=== PATIENT | female | born 1995 | race African-American/Black ===

== ENCOUNTER 2017-10-30 20:31 | Day surgery (SDC) | payer OTHER ==
[2017-10-30 21:01] VITALS: BMI 25.8
--- NOTE | 2017-10-30 21:37 | PDOC.LDHP ---
Labor and Delivery H&P Chief complaint: abdominal pain HPI: 22 yo @ 27.2 by lmp and 2nd tri US presents for cc of abdominal pain, nasuea and vomiting over last 24 hours. Pt reports abdominal pain since this am that was resolved with tylenol. Her is in the ER being treated for similar symptoms. She denies fever,chills, sweats, cp, sob. Reports good movement. She describes discomfort as a feeling she needs to have a bm. Denies diarrhea, constipation. Current gestational age (weeks): 27 (+2) Due date: 01/27/18 Dating criteria: last menstrual period, second trimester ultrasound Grav: 2 Para: 1 Current complications: none Abnormal US findings: No Current medications: pre- vitamins Previous surgical history: none Social history: none - Physical Exam Vital signs reviewed and normal: yes General: NAD, resting Heart: RRR Lungs: CTAB Abdomen: NTTP Extremeties: no edema FHT: category 1 - OB Labs Blood type: A RH: positive Antibody Screen: negative HIV: negative RPR: negative HEPSAg: negative 1 hour GCT: unknown GBS: unknown Urine drug screen: not done Rubella: immune - Assessment 1) Gastroenteritis, likely viral: Given pts symptoms and close contacts with similar symptoms will treat for presumed viral gastroenteritis. SL zofran for nausea and 1L bolus LR. Will check UA to r/o UTI/pyelo although clinical suspicion is low given afebrile and no cva tenderness. FHT look excellent with good variability and baseline FHR approx 140s. She reports good movement and denies LOF, vaginal bleeding/pain or pressure. - Plan Plan: observation in L&D, other -: Given pts symptoms and close contacts with similar symptoms will treat for presumed viral gastroenteritis. SL zofran for nausea and 1L bolus LR. Will check UA to r/o UTI/pyelo although clinical suspicion is low given afebrile and no cva tenderness. FHT look excellent with good variability and baseline FHR approx 140s. She reports good movement and denies LOF, vaginal bleeding/ pain or pressure. Likely D/C to home with sl zofran, but will reassess after IVF and sl zofran. <Mike Baez - Last Filed: 10/30/17 21:56> <Mansi Mata - Last Filed: 10/31/17 00:42> Allergies/Adverse Reactions: Allergies Allergy/AdvReac Type Severity Reaction Status Date / Time No Known Allergies Allergy Verified 10/30/17 20:55 Attending Addendum - Attending Addendum Date/Time: 10/31/17 0035 I personally evaluated the patient and discussed the management with Dr. Baez I agree with the History, Examination, Assessment and Plan documented above with any addition or exceptions noted below- 22 yo @27.2 weeks presented c/o N/V for the last 24 hours. Spouse has similar symptoms. Has not been able to tolerate food or liquids. Denies any diarrhea. Has had some associated epigastric pain. Denies any fever/chills. (+) FM. A/P: Probable Gastroenteritis- given IVF and offered zofran which she declines. [place] much improved after fluids and was able to tolerate some liquids. Plan to D/c home. Has follow-up scheduled for 10/31/17. <Mansi Mata - Last Filed: 10/31/17 00:42>
[2017-10-30] MEDS ORDERED: Ondansetron ODT 8 MG TAB SL PRN (21:48)
[2017-10-30] MEDS ORDERED: Lactated Ringer's 1,000 ML IV SCH (22:00)
[2017-10-30 22:29] LABS: Bilirubin Negative (Negative); Blood, Urine Negative (Negative); Clarity CLEAR (Clear); Glucose, Urine (Dipstick) Negative (Negative); Leukocyte Small (Negative); Nitrite Negative (Negative); Protein, Urine (Dipstick) 30 mg/dL (Neg-Trace); pH, Urine 6.5 (5.0-9.0)
[2017-10-30 22:31] LABS: Bacteria/HPF None Seen HPF (None Seen); Hyaline Casts/LPF 7-10 HYALINE CAST LPF (0-3 Hyaline); Pathc Cast-AUWi Flag 0.87 (0-2.49); RBC/HPF 0-3 HPF (0-3)
== END 2017-10-30 23:32 | disposition home or self-care (01) ==
LOC: L&D/OP 20:31
PROVIDERS: ATTEND Family Medicine
DX: O99.89 Other specified diseases and conditions complicating pregnancy, childbirth and the puerperium (principal); R10.13 Epigastric pain; R11.2 Nausea with vomiting, unspecified; Z3A.27 27 weeks gestation of pregnancy
CPT/HCPCS: 81003; 81015; 96360; 96361; 99282

== ENCOUNTER 2018-01-20 22:04 | Inpatient (IN) | payer OTHER ==
[2018-01-20 22:55] VITALS: BMI 28.5
--- NOTE | 2018-01-21 00:14 | PDOC.FPROB ---
FMR OB H&P: HPI - History of Present Illness Chief Complaint: contractions FMR OB H&P: Medications - Current Home Medications: Medication Instructions Recorded Confirmed Type Vits96/Iron Fum/Folic 1 tablet PO DAILY 12/29/15 01/20/18 History [ Tablet] Ferrous Sulfate [Feosol] 325 mg PO BID-WM #0 tab 05/02/16 01/20/18 Rx Acetaminophen [Tylenol Extra 1,000 mg PO PRN PRN 10/30/17 01/20/18 History Strength] Ondansetron [Zofran ODT] 4 mg SL Q8H PRN #30 tab 10/30/17 01/20/18 Rx Allergies/Adverse Reactions: Allergies Allergy/AdvReac Type Severity Reaction Status Date / Time No Known Allergies Allergy Verified 10/30/17 20:55 FMR OB H&P: Vital Signs - Maternal Vital signs: Vital Signs - First Documented Temp Pulse Resp BP 99.3 F 80 18 134/86 01/20/18 22:32 01/20/18 22:32 01/20/18 22:32 01/20/18 22:32 FMR OB H&P: A/P Discussion: Date/Time: 01/21/18 0014 This H&P was discussed with [] and [] who agree with the above documentation and plan.
[2018-01-21] MEDS ORDERED: Acetaminophen 500 MG TAB ONE (03:33)
[2018-01-21] MEDS ORDERED: Promethazine HCl 25 MG/ML VIAL IM PRN ×2 (04:42→06:17)
[2018-01-21] MEDS ORDERED: Acetaminophen 500 MG TAB PO PRN (04:42)
[2018-01-21] MEDS ORDERED: Ondansetron HCl/PF 4 MG/2 ML Vial IVP PRN ×2 (04:42→06:17)
[2018-01-21] MEDS ORDERED: Butorphanol Tartrate 1 MG/ML VIAL SLOW IVP PRN (04:42)
[2018-01-21] MEDS: Lactated Ringer's 1,000 ML IV SCH ×3 (04:43→23:37)
[2018-01-21] MEDS ORDERED: Penicillin G Potassium 5 MILL.UNITS in Sodium Chloride 0.9% 100 ML IVPB SCH (04:45)
[2018-01-21] MEDS ORDERED: NS / Oxytocin 40 units/1000ml 1,000 ML IV SCH (04:45)
[2018-01-21] MEDS ORDERED: NS w/ Oxytocin 10 units 500 ML IV SCH ×2 (04:45)
[2018-01-21] MEDS ORDERED: Lidocaine 1% (PF) 30 ML VIAL SC PRN (04:45)
[2018-01-21] MEDS ORDERED: HYDROcodone/Acetaminophen 5/325 mg Tablet PO PRN (04:45)
[2018-01-21] MEDS ORDERED: Ibuprofen 800 MG TAB PO PRN (04:45)
[2018-01-21] MEDS ORDERED: Misoprostol 200 MCG TAB RC PRN (04:45)
[2018-01-21] MEDS: Penicillin G Potassium 2.5 MILL.UNITS in Sodium Chloride 0.9% 100 ML IVPB SCH ×4 (05:25→18:42)
[2018-01-21] MEDS ORDERED: Bupivacaine 0.5% 20 ML, fentaNYL Citrate/PF 400 MCG in Sodium Chloride 0.9% 72 ML EPIDURAL SCH (05:30)
[2018-01-21 05:43] LABS: Hemoglobin 11.1 g/dL (12.0-16.0); Mean Corpuscular HGB CONC 32.8 g/dL (32.0-36.0); Mean Corpuscular Hemoglobin 26.8 pg (25.0-35.0); Mean Corpuscular Volume 81.7 fL (78.0-98.0); Platelet Count 238 thou/uL (130-400); RBC Distribution Width 12.8 % (11.5-14.5); Red Blood Cell (RBC) Count 4.13 mill/uL (4.00-5.20); White Blood Cell (WBC) Count 8.1 thou/uL (4.8-10.8)
[2018-01-21 06:12] LABS: Syphilis Antibody Nonreactive (Nonreactive); Syphilis Antibody Index 0.06 S/CO (<1.00 Non-Reactive)
[2018-01-21 06:14] LABS: HBSAg Index 0.15 S/CO (0-0.99); HIV (1/2) Antibody/Antigen Non-Reactive (NonReactive); HIV 1/2 INDEX 0.09 S/CO (<1.00); Hep B Surf Ag Non-Reactive S/CO (NonReactive)
[2018-01-21] MEDS ORDERED: Acetaminophen 325 MG TAB PO PRN (06:17)
[2018-01-21] MEDS ORDERED: diphenhydrAMINE 50 MG/ML VIAL IVP PRN (06:17)
[2018-01-21] MEDS ORDERED: Eucerin (Mineral Oil/Petrolatum,White) 30 gm Jar TOP PRN (06:17)
[2018-01-21] MEDS ORDERED: ePHEDrine/0.9% NaCl/PF SYRINGE 50 mg/10 ml SLOW IVP PRN (06:17)
[2018-01-21] MEDS ORDERED: Lactated Ringer's 500 ML IV PRN (06:17)
[2018-01-21] MEDS ORDERED: Naloxone HCl 0.4 mg/ml Vial IVP PRN ×2 (06:17)
[2018-01-21] MEDS ORDERED: fentaNYL Citrate/PF 400 MCG, Bupivacaine 0.5% 20 ML in Sodium Chloride 0.9% 72 ML EPIDURAL SCH (06:30)
[2018-01-21] MEDS ORDERED: Communication Order-Pharmacy FS SCH (06:30)
--- NOTE | 2018-01-21 08:13 | PDOC.OPDEL ---
OB Operative/Delivery Note Delivery Dr/Surgeon: Tal, attending Dr. Olivares Assist: Tam Ordonez Pre-Delivery Diagnosis: active labor Procedure/Post Delivery Dx: spontaneous vaginal delivery Weeks gestation: 39 (39w2d) Anesthesia: epidural - Additional Findings/Plan Placenta delivered: spontaneous Repaired Obstetrical Laceration: periurethral (small periurethral abrasions- hemostatic) Estimated blood loss: QBL- 539 Compilations/Other Findings: Delivering Physician: Rossy Parada DO, assist (Dr. Radha Turcios, Dr. Natividad Rodgers) Attending: Dr. Lady Olivares Procedure: Spontaneous Vaginal Delivery Anesthesia: epidural QBL: 539 ml Pre-op Diagnosis: 1. Term intrauterine in labor 2. GBS positive 3. Hx of cannabis use in 4. Hx of chlamydial cervicitis, unk TAWNYA Post-op Diagnosis: 1. Term intrauterine , delivered 2. GBS positive, inadequate prophylaxis 3. Hx of cannabis use in 4. Hx of chlamydial cervicitis, TAWNYA pending Indications: A 22 y/o female --> 2 presents in latent labor and quickly progressed to active labor. Delivery Note: This is 22yo F --> 2 @ 39.2wks who delivered a viable F at 0721. Following an uneventful antepartum course, a vigorous F was delivered over an intact perineum in the occipitoanterior position. Anterior Shoulder and then remainder of the body delivered. No nuchal cord. The head was held down and mouth and nares were bulb suctioned. Delayed cord clamping was performed. Cord clamped and cut and cord blood collected. Placenta delivered intact with a 3 vessel cord noted, did have some trailing membranes that were teased out. Fundal massage was performed and the fundus was firm. The cervix and vagina were inspected and found to have bilateral periurethral abrasions that were hemostatic. No other lacerations noted. Infant remained with patient for skin to skin contact with plans to go to nursery for routine care. Apgars were 9/9 at 1 & 5 minutes, respectively. Patient tolerated delivery well and will go to after routine recovery/care. Post delivery plan: routine recovery <Rossy Parada - Last Filed: 01/21/18 08:11> Attending Addendum - Attending Addendum Date/Time: 01/22/18 0226 I personally evaluated the patient and discussed the management with Dr. Parada. I agree with the History, Examination, Assessment and Plan documented above with any addition or exceptions noted below. I was present for and assisted in the uncomplicated of vigorous female . <Lady Olivares - Last Filed: 01/22/18 02:27>
[2018-01-21 08:28] LABS: Amphetamine Not Detected (NotDetected); Barbiturates Screen Detected (NotDetected); Benzodiazepine Screen Not Detected (NotDetected); Cocaine Metabolite Screen Not Detected (NotDetected); Medtox Control Line Valid? VALID (VALID); Medtox Reader # READER 4; Methadone Not Detected (NotDetected); Methamphetamine Not Detected (NotDetected); Opiate Screen Not Detected (NotDetected); Oxycodone Screen Not Detected (NotDetected); Phencyclidine (PCP) Not Detected (NotDetected); THC/Cannabinoid Screen Detected (NotDetected); Tricyclic Screen Not Detected (NotDetected)
[2018-01-21] MEDS ORDERED: Lidocaine 2% MPF 10 ML AMP (For Epidural Use) ONE (11:34)
[2018-01-21] MEDS: Ibuprofen 800 MG TAB PO SCH ×2 (16:34→21:50)
[2018-01-22] MEDS: Lactated Ringer's 1,000 ML IV SCH ×2 (05:55→18:57)
[2018-01-22] MEDS: Ibuprofen 800 MG TAB PO SCH ×3 (05:58→21:09)
--- NOTE | 2018-01-22 07:06 | PDOC.PP ---
Post Progress Note Post Day #: 1 Subjective: 22 yo -->2 delivered yesterday at 0721 a F infant via . She had small periurethral lacs that were not repaired. She is doing well this morning. She reports adequate pain control. Her roass has been d/c'd and she is voiding normally and ambulating. She is not . No acute complaints and no events overnight. Patient with positive drug screen yet again. She continues to deny use of cannabis use and any other recreational drugs. PO intake tolerated: yes Flatus: yes Ambulation: yes Vital Signs (12 hours) Temp Pulse Resp BP 01/22/18 00:45 97.4 F L 77 18 125/70 01/21/18 20:36 98.7 F 85 18 129/69 Weight Weight 80.286 kg - Physical Examination General: NAD Cardiovascular: no m/r/g Respiratory: clear to auscultation bilaterally, non-labored breathing Abdominal: + bowel sounds, lochia, no distention, appropriately TTP Fundus firm & at: -1 Extremities: negative homans (B) Neurological: no gross focal deficits Psychiatric: A&Ox3, normal affect Result Diagrams: 01/21/18 05:29 Additional Labs: Post Labs Blood Type A POSITIVE 01/21/18 05:29 Hep Bs Antigen Non-Reactive S/CO (NonReactive) 01/21/18 05:29 (1) (normal spontaneous vaginal delivery) Code(s): O80 - ENCOUNTER FOR FULL-TERM UNCOMPLICATED DELIVERY Status: Acute (2) Anemia during Code(s): O99.019 - ANEMIA COMPLICATING , UNSPECIFIED TRIMESTER Status : Acute (3) Group B streptococcal infection during Code(s): O98.819 - OTH MATERNAL INFEC/PARASTC DISEASES COMP PREG, UNSP TRI; B95.1 - STREPTOCOCCUS, GROUP B, CAUSING DISEASES CLASSD ELSWHR Status: Acute (4) History of marijuana use Code(s): Z87.898 - PERSONAL HISTORY OF OTHER SPECIFIED CONDITIONS Status: Suspected (5) Maternal chlamydia infection, history of, currently Code(s): O09.299 - SUPRVSN OF PREG W POOR REPRODCTV OR OBSTET HISTORY, UNSP TRI ; Z86.19 - PERSONAL HISTORY OF OTHER INFECTIOUS AND PARASITIC DISEASES; Z87.59 - PERSONAL HISTORY OF COMP OF PREG, CHLDBRTH AND THE PUERP Status: Resolved - Assessment/Plan 22yo -->2 delivered F infant at 0721 01/21. PPD #1. Maternal Chlamydial infection: - TAWNYA pending still, infant without s/sx UDS Positive: - Cannabinoids and barbituates - Patient denies use - CM consult GBS Positive with Inadequate Prophylaxis: - Will observe for 48h - No s/sx of infection Patient doing well, ambulating, toileting, pain well controlled. Lochia wnl. Plan to d/c home tomorrow pending CM recs. <Rossy Parada - Last Filed: 01/22/18 08:15> Vital Signs (12 hours) Temp Pulse Resp BP 01/22/18 11:58 98.5 F 81 20 146/76 H 01/22/18 08:00 98.2 F 70 20 150/85 H Weight Weight 80.286 kg Result Diagrams: 01/21/18 05:29 Additional Labs: Post Labs Blood Type A POSITIVE 01/21/18 05:29 Hep Bs Antigen Non-Reactive S/CO (NonReactive) 01/21/18 05:29 <Thi Castañeda - Last Filed: 01/22/18 14:11> Attending Addendum - Attending Addendum Date/Time: 01/22/18 1410 I personally evaluated the patient and discussed the management with Dr. Parada I agree with the History, Examination, Assessment and Plan documented above with any addition or exceptions noted below. ppd #1 s/p - recovering well. No concerns. Expect d/c tomorrow. <Thi Castañeda - Last Filed: 01/22/18 14:11>
[2018-01-22 22:42] LABS: Chlamydia by PCR Not Detected (NotDetected)
[2018-01-22 22:53] LABS: GC by PCR Not Detected (NotDetected)
[2018-01-23] MEDS: Lactated Ringer's 1,000 ML IV SCH ×2 (02:46→06:34)
--- NOTE | 2018-01-23 06:07 | PDOC.PP ---
Post Progress Note Post Day #: 2 Subjective: No events overnight. Patient states that her pain is well-controlled. Voiding and stooling normally. Bleeding is equivalent to normal menstrual bleeding but no clots have been seen. Patient is bottle feeding and says baby is feeding well. No concerns at this time. PO intake tolerated: yes Flatus: yes Ambulation: yes Vital Signs (12 hours) Temp Pulse Resp BP Pulse Ox 01/22/18 21:00 98.4 F 83 18 125/80 100 Weight Weight 80.286 kg - Physical Examination General: NAD Cardiovascular: no m/r/g, RRR Respiratory: clear to auscultation bilaterally, non-labored breathing Abdominal: + bowel sounds, lochia, no distention, appropriately TTP Extremities: negative homans (B) Neurological: no gross focal deficits Psychiatric: A&Ox3, normal affect Result Diagrams: 01/21/18 05:29 Additional Labs: Post Labs Blood Type A POSITIVE 01/21/18 05:29 Hep Bs Antigen Non-Reactive S/CO (NonReactive) 01/21/18 05:29 (1) Term delivered Code(s): O80 - ENCOUNTER FOR FULL-TERM UNCOMPLICATED DELIVERY Status: Acute (2) Anemia during Code(s): O99.019 - ANEMIA COMPLICATING , UNSPECIFIED TRIMESTER Status : Acute (3) Group B streptococcal infection during Code(s): O98.819 - OTH MATERNAL INFEC/PARASTC DISEASES COMP PREG, UNSP TRI; B95.1 - STREPTOCOCCUS, GROUP B, CAUSING DISEASES CLASSD ELSWHR Status: Acute (4) History of marijuana use Code(s): Z87.898 - PERSONAL HISTORY OF OTHER SPECIFIED CONDITIONS Status: Suspected (5) Maternal chlamydia infection, history of, currently Code(s): O09.299 - SUPRVSN OF PREG W POOR REPRODCTV OR OBSTET HISTORY, UNSP TRI ; Z86.19 - PERSONAL HISTORY OF OTHER INFECTIOUS AND PARASITIC DISEASES; Z87.59 - PERSONAL HISTORY OF COMP OF PREG, CHLDBRTH AND THE PUERP Status: Resolved - Assessment/Plan 22yo -->2 PPD #2 s/p of a TAGA female at 0721 on 01/21. 1. day #2 s/p : - Will continue routine PP care. - Continue SHANNON ibuprofen & PRN tylenol for pain control. - Voiding, stooling & ambulating well. - Bottle feeding. - No concerns at this time. 2. Maternal Chlamydial infection: - TAWNYA still pending. - Infant still without s/sx. 3. UDS Positive: - UDS + for Cannabinoids and barbituates on admission. - Patient denies use - CM consult 4. GBS Positive with Inadequate Prophylaxis: - Baby has been observed for 48 hours now w/ no s/sx of infection. - Per nurse, CM saw patient yesterday and CPS will be by to see patient before she is discharged today. DISPO: Discharge home today after being seen by CPS. F/u appt in [address] Parada. <Radha Turcios - Last Filed: 01/23/18 07:07> Vital Signs (12 hours) Temp Pulse Resp BP 01/23/18 08:00 98.5 F 74 20 126/78 Weight Weight 80.286 kg Result Diagrams: 01/21/18 05:29 Additional Labs: Post Labs Blood Type A POSITIVE 01/21/18 05:29 Hep Bs Antigen Non-Reactive S/CO (NonReactive) 01/21/18 05:29 <Thi Castañeda - Last Filed: 01/23/18 12:48> Attending Addendum - Attending Addendum Date/Time: 01/23/18 1244 I personally evaluated the patient at 0925 and discussed the management with Dr. Turcios I agree with the History, Examination, Assessment and Plan documented above with any addition or exceptions noted below. ppd #2 s/p - recovering well. Elevated single bp 150 sytolic. Asymptomatic. Stable for d/c home. <Thi Castañeda - Last Filed: 01/23/18 12:48>
[2018-01-23] MEDS: Ibuprofen 800 MG TAB PO SCH (06:33)
[2018-01-23 09:15] VITALS: BP 126/78; TEMP 98.5
== END 2018-01-23 13:20 | disposition home or self-care (01) | DRG 775 ==
LOC: L&D/OP 22:04 → L&D 01-21 04:24 → 3SW 01-21 14:29
PROVIDERS: ADMIT Family Medicine; ATTEND Family Medicine
PROC: 10E0XZZ Delivery of Products of Conception, External Approach (ICD-10-PCS; principal; 2018-01-21)
DX: O99.02 Anemia complicating childbirth (principal); O99.824 Streptococcus B carrier state complicating childbirth; Z37.0 Single live birth; Z3A.39 39 weeks gestation of pregnancy; D64.9 Anemia, unspecified
CPT/HCPCS: 51702; 80306; 85027; 86780; 86850; 86900; 86901; 87340; 87389; 87491; 87591; 99285; J0595; J2001; J2540; J3010; J3490; J7050

== ENCOUNTER 2018-03-30 13:52 | Emergency (ER) | payer OTHER ==
[2018-03-30] MEDS ORDERED: Dexamethasone 4 mg/ml Vial ONE (14:05)
== END 2018-03-30 14:39 | disposition home or self-care (01) ==
LOC: ERS 13:52
DX: L27.1 Localized skin eruption due to drugs and medicaments taken internally (principal); T37.0X5A Adverse effect of sulfonamides, initial encounter
CPT/HCPCS: 96372; J1100

== ENCOUNTER 2018-10-06 12:41 | Emergency (ER) | payer OTHER, SELFPAY | END 2018-10-06 14:41 | disposition home or self-care (01) | LOC: ERS 12:41 | DX: S61.305A Unspecified open wound of left ring finger with damage to nail, initial encounter (principal); W26.0XXA Contact with knife, initial encounter | CPT/HCPCS: 99282 ==

== ENCOUNTER 2019-09-14 10:57 | Emergency (ER) | payer SELFPAY ==
[2019-09-14 12:15] LABS: #Basophils 0.1 thou/uL (0.0-0.2); #Eosinphils 0.2 thou/uL (0.0-0.7); #Lymphocytes 2.9 thou/uL (1.20-3.40); #Monocytes 0.6 thou/uL (0.11-0.59); #Neutrophils 4.3 thou/uL (1.40-6.50); %Basophils 1.1 % (0.0-1.0); %Eosinophils 2.3 % (0.0-10.0); %Lymphocytes 35.8 % (21.0-51.0); %Monocytes 7.8 % (0.0-10.0); Hemoglobin 11.7 g/dL (12.0-16.0); Mean Corpuscular HGB CONC 33.9 g/dL (32.0-36.0); Mean Corpuscular Hemoglobin 27.5 pg (27.0-31.0); Mean Corpuscular Volume 80.9 fL (78.0-98.0); Mean Platelet Volume 7.2 fL (7.4-10.4); Platelet Count 250 thou/uL (130-400); RBC Distribution Width 11.9 % (11.5-14.5); Red Blood Cell (RBC) Count 4.28 mill/uL (4.20-5.40); White Blood Cell (WBC) Count 8.1 thou/uL (4.8-10.8)
[2019-09-14 12:36] LABS: Bilirubin Negative (Negative); Blood, Urine Negative (Negative); Clarity Clear (Clear); Glucose, Urine (Dipstick) Normal (Negative); Leukocyte Negative Leu/uL (Negative); Nitrite Negative (Negative); Protein, Urine (Dipstick) Negative (Neg-Trace); Urobilinogen Normal mg/dL (Less than 2)
[2019-09-14 12:39] LABS: ALT (SGPT) Less than 7 U/L (8-55); AST (SGOT) 12 U/L (5-34); Albumin 4.3 g/dL (3.5-5.0); Alkaline Phosphatase 51 U/L (40-110); Anion Gap 13 mmol/L (10-20); BUN (Urea Nitrogen) 5 mg/dL (7.0-18.7); Bilirubin, Total 0.5 mg/dL (0.2-1.2); Calc. Creatinine Clearance 0 mL/min (70-130); Calcium 9.3 mg/dL (7.8-10.44); Carbon Dioxide 24 mmol/L (22-29); Chloride 103 mmol/L (98-107); Estimated GFR-MDRD Greater than 90; Globulin 2.9 g/dL (2.4-3.5); Glucose 86 mg/dL (70-105); Lipase 11 U/L (8-78); Potassium 3.8 mmol/L (3.5-5.1); Protein, Total 7.2 g/dL (6.0-8.3); Sodium 136 mmol/L (136-145)
== END 2019-09-14 13:19 | disposition home or self-care (01) ==
LOC: ERS 10:57
DX: O21.0 Mild hyperemesis gravidarum (principal); Z87.891 Personal history of nicotine dependence; Z3A.01 Less than 8 weeks gestation of pregnancy
CPT/HCPCS: 80053; 81003; 83690; 85025; 96361; 96374

== ENCOUNTER 2020-04-07 14:45 | Outpatient (CLI) | payer MEDICAID ==
[2020-04-08 12:02] LABS: SARS-CoV-2 MS2 Positive; SARS-CoV-2 N Gene Negative; SARS-CoV-2 S Gene Negative; SARS-CoV-2 by NAA Not Detected (NotDetected); SARS-CoV-2 orf1ab Negative
== END 2020-04-07 14:46 | disposition home or self-care (01) ==
LOC: LABBT 14:45
PROVIDERS: ATTEND Family Medicine
DX: Z20.828 Contact with and (suspected) exposure to other viral communicable diseases (principal)
CPT/HCPCS: 87635; U0003

== ENCOUNTER 2020-04-09 13:31 | Day surgery (SDC) | payer OTHER ==
[2020-04-09] MEDS ORDERED: Acetaminophen 500 MG TAB PO SCH (14:00)
[2020-04-09] MEDS ORDERED: Iron Sucrose Complex 500 MG in Sodium Chloride 0.9% 250 ML 250 ML IVPB SCH (14:00)
[2020-04-09 14:20] VITALS: BP 126/70; TEMP 98.5; BMI 31.6
== END 2020-04-09 18:31 | disposition home or self-care (01) ==
LOC: SDC/OP 13:31 → L&D/OP 18:31
PROVIDERS: ATTEND Family Medicine
DX: O99.019 Anemia complicating pregnancy, unspecified trimester (principal); D64.9 Anemia, unspecified; Z3A.00 Weeks of gestation of pregnancy not specified; Z79.899 Other long term (current) drug therapy
CPT/HCPCS: 96361; 96365; 96366; 99282; J1756; J7050

== ENCOUNTER 2020-04-26 19:30 | Inpatient (IN) | payer OTHER ==
[2020-05-03] MEDS ORDERED: Ibuprofen 800 MG TAB PO PRN (22:26)
[2020-05-03] MEDS ORDERED: Misoprostol 200 MCG TAB PR PRN (22:26)
[2020-05-03] MEDS ORDERED: Methylergonovine 0.2 MG/ML VIAL IM PRN (22:26)
[2020-05-03] MEDS ORDERED: Carboprost 250 MCG/ML AMP IM PRN (22:26)
[2020-05-03] MEDS ORDERED: Lidocaine 1% (PF) 30 ML VIAL SC PRN (22:26)
[2020-05-03] MEDS ORDERED: NS / Oxytocin 40 units/1000ml 1,000 ML IV PRN (22:26)
[2020-05-03] MEDS ORDERED: Ondansetron PF 4 MG/2 ML Vial IVP PRN (22:26)
[2020-05-03] MEDS ORDERED: Promethazine HCl 25 MG/ML VIAL IM PRN (22:26)
[2020-05-03] MEDS ORDERED: hydrALAZINE 20 MG/ML VIAL SLOW IVP PRN (22:26)
--- NOTE | 2020-05-03 22:26 | PDOC.FPROB ---
FMR OB H&P: HPI - History of Present Illness Chief Complaint: elective IOL History of Present Illness: 24 y/o @ 40.0 wks by LMP c/w 19.6 wk sono presents for eIOL. Endorses good movement. No vaginal bleeding, vaginal discharge, LOF. Occasional contractions > 15 min apart. Reports she is feeling well and has no complaints. complicated by anemia, Hgb was 10.0 on 03/31 and received iron transfusion on 04/09. Known GBS positive. Last SVE on 04/19 in the office was 10/-3 Primary Care Physician: ONESIMO Johnson FMR OB H&P: Current - Care : 3 Para: 2001 Gestational age: 40.0 Due date: 05/03/20 Dating Criteria: 19.6 wk sono Total weight gain: 43 lb Course/Complications: Anemia - s/p iron transfusion 1T UDS - reflex cannabinoids 3T UDS - negative - OB Labs Blood type: A RH: positive Antibody Screen: unknown HIV: negative RPR: negative HepBsAg: negative Rubella: immune Quad screen: unknown Urine drug screen: negative Gonorrhea: negative Chlamydia: negative Pap Smear: NILM 3 hour GTT: 2 hr: 73/128/95 GBS: positive H&H: 10.0/30.2 before iron infusion Platelets: 212 FMR OB H&P: History - Past Medical History PMH: denies PMHx - OB History OB History: #1: uncomplicated , vacuum-assisted vaginal delivery, otherwise uncomplicated #2: uncomplicated with - TRAFFIC OFFICER History TRAFFIC OFFICER History: NILM pap 11/2019 - Surgical History Sx History: denies previous surgeries - Social History Social History: Former smoker, denies tobacco use in . Occasional etoh consumption outside of , denies etoh use during . Occasional marijuana use outside , denies cannabis use during . - Family History Family History: maternal GM : heart failure, hypothyroid FMR OB H&P: Medications - Current Home Medications: Medication Instructions Recorded Confirmed Type No.137/Iron/Folic Acd 1 tablet PO DAILY 12/29/15 05/03/20 History [ Vitamin Tablet] Ferrous Sulfate [Feosol] 325 mg PO BID-WM #0 tab 05/02/16 05/03/20 Rx Allergies/Adverse Reactions: Allergies Allergy/AdvReac Type Severity Reaction Status Date / Time No Known Allergies Allergy Verified 09/04/19 10:33 FMR OB H&P: ROS - Review of Systems General: denies: fever/chills, weight/appetite/sleep changes Eyes: denies: vision changes, scotomas ENT: denies: nasal congestion, rhinorrhea, sore throat Cardiovascular: reports: edema. denies: chest pain, palpitation, orthopnea Respiratory: denies: cough, congestion, shortness of breath Gastrointestinal: denies: abdominal pain, indigestion, cramping, nausea, vomiting, diarrhea, constipation Genitourinary (Female): reports: contractions. denies: dysuria, hematuria, polyuria, hesitancy, vaginal discharge, vaginal pain, vaginal bleeding, vaginal pressure Musculoskeletal: denies: pain Neurologic: denies: weakness, headache Integumentary: denies: rash, lesions Endocrine: denies: polyuria Psychological: denies: depression, anxiety FMR OB H&P: Vital Signs - Maternal Vital signs: BP 126/83 HR 96 - Heart Tones Baseline: 135 Variability: moderate Acceleration: present Deceleration: absent Category: category 1 [place] contractions every: > 15 min apart FMR OB H&P: Physical Exam - Physical Exam General: NAD, awake, alert and oriented HEENT: normocephalic and atraumatic, MMM, conjunctiva clear, no scleral icterus, grossly normal vision, grossly normal hearing, good dention Neck: supple, no LAD Chest: non-tender to palpation Heart: RRR, no murmurs/rubs/gallops, pulses present, other (trace non-pitting edema) General: CTAB, no respiratory distress, good air movement, no rales/rhonchi, no wheezing, no retractions Abdomen: soft, gravid, non-tender Musculoskeletal: pulses present Neurological: sensation to pain,touch and proprioception grossly normal, DTR +1, no clonus Skin: no rash, good tugor, capillary refill <2 seconds Lymphatic: no unusual bruising or bleeding Psychiatric: intact recent and remote memory, good judgement and insight, normal mood and affect - Pelvic Exam Vulva: no masses, no lesions, no discharge, no blood SVE: 50/-3 [place] score: 2 Membranes: intact Presentation: cephalic on bedside sono FMR OB H&P: A/P Disposition: 24 y/o presents for eIOL: sIUP @ 40.0 wks, eIOL eIOL for term , VILMA 05/03/20. COVID neg. - cephalic presentation on bedside sono - SVE @ 1145 50/-3, cat 1 FHT 135/mod/+accel - Schofield 2, unfavorable cervix - cytotec placed 0020 - continue FHT and toco monitoring - recheck SVE in 3-4 hours GBS positive -PCN 5 mil loading dose and 2.5 mil q4h started on induction Anemia of s/p iron transfusion 04/09 - repeat H/H Maternal hx marijuana use UDS+ cannabinoids in 1T. Negative in 3T. Admits occasional use prior to , denies use during . - UDS today to confirm negative Discussion: Date/Time: 05/03/202225 This H&P was discussed with Dr. Toledo and Dr. Mata who agree with the above documentation and plan. Addendum - Attending - Attending Attestation Date/Time: 05/04/20 0043 I personally evaluated the patient and discussed the management with Dr. Morley I agree with the History, Examination, Assessment and Plan documented above with any addition or exceptions noted below - 24 @40 0/7 weeks here for elective induction. Denies any complaints. (+) FM. Afebrile VSS SVE 50/-3; FHTs - Cat 1; [place]- ctx q15 min. A/P: 1) IUP @40 0/7 weeks - Will start PCN for GBS prophylaxis. Will start cytotec for cervical ripening.
[2020-05-03 22:42] VITALS: BMI 33.2
[2020-05-03 23:02] LABS: Hemoglobin 10.8 g/dL (12.0-16.0); Mean Corpuscular HGB CONC 31.7 g/dL (32.0-36.0); Mean Corpuscular Hemoglobin 25.9 pg (27.0-31.0); Mean Corpuscular Volume 81.8 fL (78.0-98.0); Mean Platelet Volume 7.6 fL (7.4-10.4); Platelet Count 230 thou/uL (130-400); RBC Distribution Width 13.5 % (11.5-14.5); Red Blood Cell (RBC) Count 4.18 mill/uL (4.20-5.40); White Blood Cell (WBC) Count 8.3 thou/uL (4.8-10.8)
[2020-05-03 23:38] LABS: Syphilis Antibody Nonreactive (Nonreactive); Syphilis Antibody Index 0.06 S/CO (<1.00 Non-Reactive)
[2020-05-03] MEDS ORDERED: Penicillin G Potassium 5 MILL.UNITS in Sodium Chloride 0.9% 100 ML IVPB SCH (23:45)
[2020-05-04] LABS: HBSAg Index 0.15 S/CO (0-0.99); Hep B Surf Ag Non-Reactive S/CO (NonReactive)
[2020-05-04] MEDS: Misoprostol 100 MCG TAB VAG SCH ×3 (00:20→22:18)
--- NOTE | 2020-05-04 04:27 | PDOC.LDPN ---
Labor & Delivery Progress Note - Subjective Subjective: comfortable - Objective Vital signs reviewed and normal: yes General: NAD, resting SVE: /-3 FHT: category 2, early decelerations, late decelerations, variability present [place] contractions every: 5-6 min -: 24 y/o presents for eIOL: sIUP @ 40.0 wks, eIOL eIOL for term , VILMA 05/03/20. COVID neg. - cephalic presentation on bedside sono - SVE @ 1145 /-3, cat 1 FHT 135/mod/+accel - Sch[place]ield 2, unfavorable cervix - cytotec placed 0020 - SVE @ 0415 /-3, cat 2 FHT 135/mod/+accel but with few non-recurrent early and late decels over the past 4 hours - plan to place cytotec in 1 hr if no additional decels - maternal position changes as needed - continue FHT and toco monitoring - recheck SVE in 3-4 hours GBS positive -PCN 5 mil loading dose and 2.5 mil q4h started on induction Anemia of s/p iron transfusion 04/09 - repeat H/H Maternal hx marijuana use UDS+ cannabinoids in 1T. Negative in 3T. Admits occasional use prior to , denies use during . - UDS today to confirm negative Discussed plan with Dr. Mata. Swapnil Morley, , PGY-1 Addendum - Attending - Attending Attestation Date/Time: 05/04/20 0634 I personally evaluated the patient and discussed the management with Dr. Morley I agree with the History, Examination, Assessment and Plan documented above with any addition or exceptions noted below FHTs reviewed with Dr. Morley, Dr. Toledo and nurse at 4 AM. Intermittent, non-reptitive late decels seen (3) in context of moderate variability and (+) accels. Will continue to monitor and adjust position. If remains Cat 1 with no further decels, will recheck and assess for repeat cytotec.
[2020-05-04] MEDS: Penicillin G 2.5 MILL.units 2.5 MILL.UNITS in Premix Bag 1 BAG IVPB SCH ×3 (04:30→08:38)
[2020-05-04] MEDS ORDERED: Ondansetron PF 4 MG/2 ML Vial IVP PRN ×2 (06:10→11:22)
[2020-05-04] MEDS ORDERED: diphenhydrAMINE 50 MG/ML VIAL IVP PRN (06:10)
[2020-05-04] MEDS ORDERED: Lactated Ringer's 500 ML IV PRN (06:10)
[2020-05-04] MEDS ORDERED: Promethazine HCl 25 MG/ML VIAL IM PRN (06:10)
[2020-05-04] MEDS ORDERED: ePHEDrine 50 MG/ML VIAL SLOW IVP PRN (06:10)
[2020-05-04] MEDS ORDERED: Naloxone HCl 0.4 mg/ml Vial IVP PRN ×2 (06:10)
[2020-05-04] MEDS ORDERED: Communication Order-Pharmacy FS SCH (06:15)
[2020-05-04] MEDS ORDERED: Fentanyl 4 mcg/Bupivacaine 0.1% Cassette 100 ML EPIDURAL SCH (06:15)
[2020-05-04] MEDS ORDERED: Lactated Ringer's 1,000 ML IV SCH (06:15)
--- NOTE | 2020-05-04 06:40 | PDOC.LDPN ---
Labor & Delivery Progress Note - Subjective Subjective: comfortable - Objective Vital signs reviewed and normal: yes General: resting SVE: 4/90/-1 FHT: category 1 [place] contractions every: q4min -: A/P: IUP@ 40 1/7 weeks undergoing induction- received 1 cytotec for cervical ripening and has progressed well. Continue to monitor and recheck in 2 hours. Epidural just placed for pain control. Continue PCN for GBS prophylaxis.
--- NOTE | 2020-05-04 08:09 | PDOC.LDPN ---
Labor & Delivery Progress Note - Subjective Subjective: comfortable - Objective Vital signs reviewed and normal: yes General: resting SVE: 6/C/-1 FHT: category 1 [place] contractions every: q4-5 min -: A/P: 1) IUP@ 40 1/7 weeks undergoing elective induction - progressing well. SROM on exam- small amount clear. Cat 1 FHTs. Recheck in 2 hours. Continue PCN for GBS prophylaxis.
--- NOTE | 2020-05-04 08:49 | PDOC.LDPN ---
Labor & Delivery Progress Note - Subjective Subjective: comfortable - Objective Vital signs reviewed and normal: yes General: NAD Uterine fundus: non tender Dilation: 6 Effacement: 100% Station: 0 FHT: category 2 (1 late accel @ 0730, moderate variability present throughout, returned to baseline, + accels) [place] contractions every: 4 min Plan: continue plan of care -: 24 y/o admitted for eIOL sIUP @ 40.0 wks, eIOL eIOL for term , VILMA 05/03/20. COVID neg. - cephalic presentation on bedside sono - SVE @ 1145 1/50/-3, cat 1 FHT 135/mod/+accel - SVE @ 0415 1/50/-3 after 1 cytotec, cat 2 FHT 135/mod/+accel but with few non- recurrent early and late decels over the past 4 hours - SVE @ 0630 4/90/-1, bulging bag, cat 1 strip - SVE @ 0800 6/100/0, SROM with clear fluid, cat 2 strip due to late variable @ 0730, moderate variability, + accels - maternal position changes as needed - continue FHT and toco monitoring GBS positive -PCN 5 mil loading dose and 2.5 mil q4h started on induction Anemia of s/p iron transfusion 04/09 -Hgb 10.8 on admission Maternal hx marijuana use UDS+ cannabinoids in 1T. Negative in 3T. Admits occasional use prior to , denies use during . - UDS today to confirm negative Dispo: Continue plan of care, recheck in 1 hour
--- NOTE | 2020-05-04 09:43 | PDOC.LDPN ---
Labor & Delivery Progress Note - Subjective Subjective: comfortable - Objective Vital signs reviewed and normal: yes General: NAD Uterine fundus: non tender Dilation: 9 Effacement: 100% Station: 0 FHT: category 1 (+ accels, no decels, moderate variability) [place] contractions every: 4min Plan: continue plan of care -: 24 y/o admitted for eIOL sIUP @ 40.0 wks, eIOL eIOL for term , VILMA 05/03/20. COVID neg. - cephalic presentation on bedside sono - SVE @ 1145 1/50/-3, cat 1 FHT 135/mod/+accel - SVE @ 0415 1/50/-3 after 1 cytotec, cat 2 FHT 135/mod/+accel but with few non- recurrent early and late decels over the past 4 hours - SVE @ 0630 4/90/-1, bulging bag, cat 1 strip - SVE @ 0800 6/100/0, SROM with clear fluid, cat 2 strip due to late variable @ 0730, moderate variability, + accels - SVE @ 0935 9/100/0, cat 1 strip - maternal position changes as needed - continue FHT and toco monitoring GBS positive -PCN 5 mil loading dose and 2.5 mil q4h started on induction Anemia of s/p iron transfusion 04/09 -Hgb 10.8 on admission Maternal hx marijuana use UDS+ cannabinoids in 1T. Negative in 3T. Admits occasional use prior to , denies use during . - UDS today to confirm negative Dispo: Continue plan of care, recheck in 1 hour Addendum - Attending - Attending Attestation Date/Time: 05/05/20 6598 I personally evaluated the patient and discussed the management with Dr. Forrest yesterday. I agree with the History, Examination, Assessment and Plan documented above with any addition or exceptions noted below.
[2020-05-04 10:06] LABS: Amphetamine Not Detected (NotDetected); Barbiturates Screen Not Detected (NotDetected); Benzodiazepine Screen Not Detected (NotDetected); Cocaine Metabolite Screen Not Detected (NotDetected); Medtox Control Line Valid? VALID (VALID); Medtox Reader # READER 4; Methadone Not Detected (NotDetected); Methamphetamine Not Detected (NotDetected); Opiate Screen Not Detected (NotDetected); Oxycodone Screen Not Detected (NotDetected); Phencyclidine (PCP) Not Detected (NotDetected); THC/Cannabinoid Screen Not Detected (NotDetected); Tricyclic Screen Not Detected (NotDetected)
[2020-05-04] MEDS ORDERED: NS / Oxytocin 40 units/1000ml 1,000 ML ONE (10:33)
[2020-05-04] MEDS ORDERED: Lidocaine 1% MPF 2 ML VIAL ONE (10:34)
[2020-05-04] MEDS ORDERED: Misoprostol 200 MCG TAB VAG PRN (11:22)
[2020-05-04] MEDS ORDERED: Milk Of Magnesia 30 ML UDCUP PO PRN (11:22)
[2020-05-04] MEDS ORDERED: Benzocaine-Menthol 82.5 ML CAN TOP PRN (11:22)
[2020-05-04] MEDS ORDERED: NS / Oxytocin 40 units/1000ml 1,000 ML IV SCH (11:22)
[2020-05-04] MEDS ORDERED: Adacel (T-DAP) 0.5 ML SYRINGE IM ONE (11:22)
[2020-05-04] MEDS ORDERED: hydrALAZINE 20 MG/ML VIAL SLOW IVP PRN (11:22)
[2020-05-04] MEDS ORDERED: Lanolin Ointment 7 GM TUBE TOP PRN (11:22)
[2020-05-04] MEDS ORDERED: Methylergonovine 0.2 MG/ML VIAL IM PRN (11:22)
[2020-05-04] MEDS ORDERED: diphenhydrAMINE 25 MG CAP PO PRN (11:22)
--- NOTE | 2020-05-04 12:02 | PDOC.OPDEL ---
OB Operative/Delivery Note - Additional Findings/Plan Compilations/Other Findings: Vaginal Delivery note Delivering Physician: Dr. Radha Forrest, Dr. Donald Johnson Attending Procedure: Dr. Zane Bravo Spontaneous Vaginal Delivery Anesthesia: epidural Pre-op Diagnosis: 1. Term intrauterine in labor 2. Maternal hx of GBS + with adequate treatment 3. Anemia of 4. Maternal hx of THC use Post-op Diagnosis: 1. Term intrauterine , delivered 2. same as above Indications: A 24 y/o female presents to L&D for eIOL Delivery Note: This is 24 yo F @ 40.1 wks who delivered a viable M infant at 1043 on 05/04/20. Following an uneventful antepartum course, a vigorous male was delivered over an intact perineum in the occipitoanterior position. Anterior Shoulder and then remainder of the body delivered. No nuchal cord. The head was held down and mouth and nares were bulb suctioned. Cord clamped and cut and cord blood collected. Placenta delivered Schultze intact with a 3 vessel cord noted. Fundal massage was performed and the fundus was firm. The cervix and vagina were inspected and found to be free of lacerations. went to nursery in good condition for routine care. Apgars were 8/9 at 1 & 5 minutes, respectively. Patient tolerated delivery well and went to after routine recovery/care. Addendum - Attending - Attending Attestation Date/Time: 05/05/20 3616 I personally evaluated the patient and discussed the management with Dr. Forrest yesterday. I agree with the History, Examination, Assessment and Plan documented above with any addition or exceptions noted below.
[2020-05-04] MEDS: Ibuprofen 800 MG TAB PO SCH ×3 (17:15→22:17)
[2020-05-04] MEDS: Docusate Calcium (SURFAK) 240 MG CAP PO SCH (22:34)
[2020-05-05] MEDS: Acetaminophen 325 MG TAB PO PRN ×2 (00:29→05:58)
[2020-05-05] MEDS: Ibuprofen 800 MG TAB PO SCH (02:28)
--- NOTE | 2020-05-05 07:39 | PDOC.PP ---
Post Progress Note Post Day #: 1 Subjective: Pt is a 24 yo G3 now P3003 who delivered at viable M at 40.1 weeks via w/o complications. Tolerating PO intake. No BM yet. Ambulating well without palpitations, lightheadedness. Little lochia, no significant abdominal tenderness. Denies headache, vision changes, chest pain, N/V, sob, LE edema, RUQ pain. PO intake tolerated: yes Flatus: yes Ambulation: yes Vital Signs (12 hours) Temp Pulse Resp BP 05/05/20 05:40 98.3 F 77 14 126/75 05/05/20 00:30 98.3 F 86 15 128/72 Weight Weight 93.44 kg - Physical Examination General: NAD Cardiovascular: no m/r/g, RRR Respiratory: clear to auscultation bilaterally, non-labored breathing Abdominal: + bowel sounds, no distention, appropriately TTP Extremities: negative homans (B) Skin: no rash Neurological: no gross focal deficits Psychiatric: A&Ox3, normal affect Result Diagrams: 05/03/20 22:45 Additional Labs: Post Labs Hep Bs Antigen Non-Reactive S/CO (NonReactive) 05/03/20 22:45 Blood Type A POSITIVE 05/03/20 22:45 (1) Anemia during Code(s): O99.019 - ANEMIA COMPLICATING , UNSPECIFIED TRIMESTER Status: Acute (2) Group B streptococcal infection during Code(s): O98.819 - OTH MATERNAL INFEC/PARASTC DISEASES COMP PREG, UNSP TRI; B95.1 - STREPTOCOCCUS, GROUP B, CAUSING DISEASES CLASSD ELSWHR Status: Acute (3) (normal spontaneous vaginal delivery) Code(s): O80 - ENCOUNTER FOR FULL-TERM UNCOMPLICATED DELIVERY Status: Acute (4) Term delivered Code(s): O80 - ENCOUNTER FOR FULL-TERM UNCOMPLICATED DELIVERY Status: Acute (5) History of marijuana use Code(s): Z87.898 - PERSONAL HISTORY OF OTHER SPECIFIED CONDITIONS Status: Suspected (6) Intrauterine normal Code(s): Z34.90 - ENCNTR FOR SUPRVSN OF NORMAL , UNSP, UNSP TRIMESTER Status: Resolved Qualifiers: Trimester: third trimester Qualified Code(s): Z34.93 - Encounter for supervision of normal , unspecified, third trimester Comment: -vacuum assisted vaginal delivery s/p recurrent late decels -thick mec on delivery --> apgars 4, 9 -monitor PP H/H -10.230.4 - Assessment/Plan Pt is a 24 yo G3 now P3003 who delivered a viable male at 40.1 wks via w/o complications: # , term - routine care - consulted - mother has switched to bottle feeding but would like pt to see before d/c attempt to breastfeed - d/c to home today - motrin for pain - continue PNV's - continue ferrous sulfate # Group B Strep Positive - adequate treatment during delivery # Anemia of - continue ferrous sulfate - follow up outpt # Hx of THC Use - negative UDS Dispo: discharge today at 24 hours Addendum - Attending - Attending Attestation Date/Time: 05/05/20 1412 I personally evaluated the patient and discussed the management with Dr. Johnson. I agree with the History, Examination, Assessment and Plan documented above with any addition or exceptions noted below.
[2020-05-05] MEDS ORDERED: Ferrous Sulfate 325 MG TAB PO SCH (08:00)
[2020-05-05] MEDS ORDERED: Prenatal Vitamin 1 TAB PO SCH (09:00)
[2020-05-05] MEDS: Docusate Calcium (SURFAK) 240 MG CAP PO SCH (09:24)
[2020-05-05 11:51] VITALS: BP 136/80; TEMP 98.4
== END 2020-05-05 14:10 | disposition home or self-care (01) | DRG 807 ==
LOC: L&D 05-03 22:01 → 3SW 05-04 14:03
PROVIDERS: ADMIT Family Medicine; ATTEND Family Medicine
PROC: 10E0XZZ Delivery of Products of Conception, External Approach (ICD-10-PCS; principal; 2020-05-04)
PROC: 3E0P7VZ Introduction of Hormone into Female Reproductive, Via Natural or Artificial Opening (ICD-10-PCS; 2020-05-04)
DX: O48.0 Post-term pregnancy (principal); Z37.0 Single live birth; O99.02 Anemia complicating childbirth; D64.9 Anemia, unspecified; Z3A.40 40 weeks gestation of pregnancy; B95.1 Streptococcus, group B, as the cause of diseases classified elsewhere; Z20.828 Contact with and (suspected) exposure to other viral communicable diseases; O99.824 Streptococcus B carrier state complicating childbirth
CPT/HCPCS: 36415; 51702; 80306; 85027; 86780; 86850; 86900; 86901; 87340; J2405; J2540; J3490

== ENCOUNTER 2020-05-01 09:17 | Outpatient (CLI) | payer OTHER ==
[2020-05-01 23:15] LABS: SARS-CoV-2 MS2 Positive; SARS-CoV-2 N Gene Negative; SARS-CoV-2 S Gene Negative; SARS-CoV-2 by NAA Not Detected (NotDetected); SARS-CoV-2 orf1ab Negative
== END 2020-05-01 09:18 | disposition home or self-care (01) ==
LOC: LABBT 09:17
PROVIDERS: ATTEND Student in an Organized Health Care Education/Training Program
DX: Z01.812 Encounter for preprocedural laboratory examination (principal); Z20.828 Contact with and (suspected) exposure to other viral communicable diseases
CPT/HCPCS: 87635; U0003

== ENCOUNTER 2020-05-17 12:06 | Inpatient (IN) | payer OTHER ==
[2020-05-17 13:34] LABS: #Basophils 0.1 thou/uL (0.0-0.2); #Eosinphils 0.4 thou/uL (0.0-0.7); #Lymphocytes 2.9 thou/uL (1.20-3.40); #Monocytes 0.5 thou/uL (0.11-0.59); #Neutrophils 2.6 thou/uL (1.40-6.50); %Basophils 1.2 % (0.0-1.0); %Eosinophils 5.5 % (0.0-10.0); %Lymphocytes 44.7 % (21.0-51.0); %Monocytes 7.8 % (0.0-10.0); %Neutrophils 40.9 % (42.0-75.0); Hemoglobin 13.2 g/dL (12.0-16.0); Mean Corpuscular HGB CONC 31.1 g/dL (32.0-36.0); Mean Corpuscular Hemoglobin 25.6 pg (27.0-31.0); Mean Corpuscular Volume 82.2 fL (78.0-98.0); Platelet Count 310 thou/uL (130-400); Red Blood Cell (RBC) Count 5.16 mill/uL (4.20-5.40); White Blood Cell (WBC) Count 6.5 thou/uL (4.8-10.8)
--- NOTE | 2020-05-17 13:38 | RAD ---
Chest AP view INDICATION: History of headache COMPARISON: Two-view chest radiograph dated February 28, 2017 FINDINGS: Lungs: The lungs are clear Cardiac silhouette: There is been interval development of mild to moderate cardiomegaly. Pulmonary vasculature: Normal Pleural spaces: No pleural effusion or pneumothorax is demonstrated. Upper abdomen: No abnormality seen. Osseous structures: No acute osseous abnormality. Additional findings: None. IMPRESSION: New [id number] cardiomegaly without evidence of cardiac decompensation.
[2020-05-17] MEDS ORDERED: Acetaminophen 325 MG TAB ONE (13:44)
[2020-05-17] MEDS ORDERED: Ketorolac Tromethamine 30 MG/ML VIAL ONE (13:44)
[2020-05-17 13:56] LABS: ALT (SGPT) 16 U/L (8-55); AST (SGOT) 16 U/L (5-34); Albumin 4.1 g/dL (3.5-5.0); Alkaline Phosphatase 93 U/L (40-110); Anion Gap 13 mmol/L (10-20); BUN (Urea Nitrogen) 14 mg/dL (7.0-18.7); Bilirubin, Total 0.4 mg/dL (0.2-1.2); Calc. Creatinine Clearance 0 mL/min (70-130); Calcium 9.4 mg/dL (7.8-10.44); Carbon Dioxide 27 mmol/L (22-29); Chloride 103 mmol/L (98-107); Globulin 3.8 g/dL (2.4-3.5); Glucose 80 mg/dL (70-105); Protein, Total 7.9 g/dL (6.0-8.3); Sodium 139 mmol/L (136-145)
--- NOTE | 2020-05-17 14:25 | CT ---
CT head without contrast CT angiogram of the head: 05/17/2020 COMPARISON: None HISTORY: headache TECHNIQUE: Axial CT imaging at 5 mm intervals from vertex through the skull base without contrast. Th en, axial CT imaging at 1.25 mm intervals from vertex through skull base with IV contrast using CT angiogram protocol. Coronal and sagittal 3-D reformatted imaging obtained. FINDINGS: Noncontrast enhanced head CT demonstrates no intracranial hemorrhage, midline shift, mass e ffect, or ventricular enlargement. There is mild diffuse mucosal thickening involving the ethmoid air cells. No acute osseous abnormality is noted. Postcontrast imaging demonstrates a hypoplastic right vertebral artery which is otherwise unremarkabl e. The left vertebral artery is dominant. The basilar artery and its branches appear patent with no saccular aneurysm, high-grade stenosis, or vascular occlusion involving the posterior circulation. The imaged extracranial ICA appears patent bilaterally. The A1 segment, M1 segment, MCA bifurcation, ICA bifurcation, distal BRIGHT branches, and distal MCA branches appear grossly unremarkable bilaterally with no saccular aneurysm, high-grade stenosis, or vascular occlusion seen. 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 The visualized portions of the internal jugular vein, sigmoid sinus, and transverse sinuses appear patent bilaterally. The superior sagittal sinus appears patent as well. The straight sinus, the vein of Steven, and the internal cerebral veins appear patent. IMPRESSION: Unremarkable CT angiogram of the head as detailed above.
[2020-05-17] MEDS ORDERED: Iopamidol-370 76% 500 ML 1 ML ONE (14:26)
[2020-05-17] MEDS ORDERED: Magnesium Sulfate 6 GM in Sodium Chloride 0.9% 250 ML 250 ML IVPB SCH (14:30)
[2020-05-17] MEDS ORDERED: Labetalol HCl 100 MG/20 ML VIAL ONE (14:39)
[2020-05-17 14:40] LABS: Bacteria/HPF None Seen HPF (None Seen); Bilirubin Negative (Negative); Blood, Urine 1+ (Negative); Clarity Clear (Clear); Glucose, Urine (Dipstick) Normal (Negative); Ketone, Urine Negative (Negative); Leukocyte Negative Leu/uL (Negative); Nitrite Negative (Negative); Protein, Urine (Dipstick) Negative (Neg-Trace); RBC/HPF 0-3 HPF (0-3); Specific Gravity, Urine 1.013 (1.002-1.036); Squamous Epithelial 0-3 HPF (0-3); Urobilinogen Normal mg/dL (Less than 2); WBC/HPF 0-3 HPF (0-3); pH, Urine 6.5 (5.0-9.0)
--- NOTE | 2020-05-17 14:56 | PDOC.FPRHP ---
- History of Present Illness Chief Complaint: Headache History of Present Illness: 24yo s/p on May 04 presented to ED for headache and elevated BP after being referred from primary office. Pt was seen in office for 2 week PP visit. She expressed 3 days of headache and was found to have a BP of . In ED she again had elevated BP in severe range and was given loading dose of Mg. Pt denies any hx of elevated BP both during and prior. She denies any vision changes, abdominal pain, trouble breathing, or chest pain. No hx of seizures. Upon eval pt's headache had essentially resolved and she just had some remaining neck tension. ED Course: Received 1L NS, 20mg labetalol, 6gm magnesium, Tylenol, and 15mg Toradol Normal head CTA - Allergies/Adverse Reactions Allergies Allergy/AdvReac Type Severity Reaction Status Date / Time No Known Allergies Allergy Verified 09/04/19 10:33 - Home Medications Medication Instructions Recorded Confirmed Type Ferrous Sulfate [Feosol] 325 mg PO QAM-WM #30 tab 05/05/20 Rx Ibuprofen [Motrin] 800 mg PO Q8HR #30 tab 05/05/20 Rx Lanolin Ointment [Lansinoh 1 applic TOP PRN PRN tube 05/05/20 Rx Ointment] Vitamin 1 tab PO DAILY #30 tab 05/05/20 Rx - History - Care : 3 Para: 3003 Gestational age: 40.1 Delivery date: 05/04/20 Dating Criteria: 19.6 wk sono Total weight gain: 43 lb Course/Complications: Anemia - s/p iron transfusion 1T UDS - reflex cannabinoids 3T UDS - negative - Initial OB Labs Blood type: A RH: positive Antibody Screen: unknown HIV: negative RPR: negative HepBsAg: negative Rubella: immune Quad screen: unknown Urine drug screen: negative Gonorrhea: negative Chlamydia: negative Pap Smear: NILM 3 hour GTT: 2 hr: 73/128/95 GBS: positive H&H: 10.0/30.2 before iron infusion Platelets: 212 FMR OB H&P: History - Past Medical History denies PMHx - OB History #1: uncomplicated , vacuum-assisted vaginal delivery, otherwise uncomplicated #2: uncomplicated with #3: uncomplicated with - [employer] History NILM pap 11/2019 - Surgical History denies previous surgeries - Social History Former smoker, denies tobacco use in . Occasional etoh consumption outside of , denies etoh use during . Occasional marijuana use outside , denies cannabis use during . - Family History maternal GM : heart failure, hypothyroid - Review of Systems General: denies: fever/chills, weight/appetite/sleep changes Eyes: denies: eye pain, vision changes ENT: denies: nasal congestion, rhinorrhea Respiratory: denies: cough, shortness of breath Cardiovascular: denies: chest pain, palpitation, edema Gastrointestinal: denies: nausea, vomiting, abdominal pain Genitourinary: denies: dysuria, polyuria Skin: denies: rashes, lesions Musculoskeletal: denies: pain, swelling Neurological: reports: other (Headache). denies: seizure, weakness Psychological: denies: anxiety, depression - Vital signs BP: 170/102, Pulse: 63, Resp: 15, Pain: 2, O2 sat: 100 on (Room Air), Wt: 89kg - Physical Exam Constitutional: NAD, awake, alert and oriented, well developed HEENT: normocephalic and atraumatic, grossly normal vision, grossly normal hearing, MMM Neck: supple, FROM Heart: RRR, normal S1/S2, no murmurs/rubs/gallops Lungs: CTAB, no respiratory distress Abdomen: soft, non-tender Musculoskeletal: normal structure, normal tone, ROM grossly normal Neurological: no focal deficit, normal sensation -Neurological: 3+ patellar tendon reflex, couple beats of pedal clonus Skin: no rash/lesions, good turgor Heme/Lymphatic: no purpura, no petechia Psychiatric: normal mood and affect, good judgment and insight, intact recent and remote memory FMR H&P: Results - Labs Result Diagrams: 05/17/20 13:22 05/17/20 13:22 Lab results: WBC 6.5 thou/uL (4.8-10.8) 05/17/20 13:22 Hgb 13.2 g/dL (12.0-16.0) 05/17/20 13:22 Hct 42.4 % (36.0-47.0) 05/17/20 13:22 MCV 82.2 fL (78.0-98.0) 05/17/20 13:22 Plt Count 310 thou/uL (130-400) 05/17/20 13:22 Neutrophils % 40.9 % (42.0-75.0) L 05/17/20 13:22 Sodium 139 mmol/L (136-145) 05/17/20 13:22 Potassium 4.0 mmol/L (3.5-5.1) 05/17/20 13:22 Chloride 103 mmol/L (98-107) 05/17/20 13:22 Carbon Dioxide 27 mmol/L (22-29) 05/17/20 13:22 BUN 14 mg/dL (7.0-18.7) 05/17/20 13:22 Creatinine 0.71 mg/dL (0.6-1.1) 05/17/20 13:22 Glucose 80 mg/dL (70-105) 05/17/20 13:22 Calcium 9.4 mg/dL (7.8-10.44) 05/17/20 13:22 Total Bilirubin 0.4 mg/dL (0.2-1.2) 05/17/20 13:22 AST 16 U/L (5-34) 05/17/20 13:22 ALT 16 U/L (8-55) 05/17/20 13:22 Alkaline Phosphatase 93 U/L (40-110) 05/17/20 13:22 Serum Total Protein 7.9 g/dL (6.0-8.3) 05/17/20 13:22 Albumin 4.1 g/dL (3.5-5.0) 05/17/20 13:22 Urine Ketones Negative mg/dL (Negative) 05/17/20 13:29 Urine Blood 1+ (Negative) A 05/17/20 13:29 Urine Nitrite Negative (Negative) 05/17/20 13:29 Ur Leukocyte Esterase Negative Jose Carlos/uL (Negative) 05/17/20 13:29 Urine RBC 0-3 HPF (0-3) 05/17/20 13:29 Urine WBC 0-3 HPF (0-3) 05/17/20 13:29 Ur Squamous Epith Cells 0-3 HPF (0-3) 05/17/20 13:29 Urine Bacteria None Seen HPF (None Seen) 05/17/20 13:29 - Radiology Interpretation CT scan - head Status: report reviewed by me (CTA head normal) Chest x-ray Status: report reviewed by me (New mild to moderate cardiomegaly compared to 2017) FMR H&P: A/P - Plan Post Preeclampsia with severe features - 2 weeks pp s/p 05/04 - Severe range pressures in clinic and ED - Headache initially, now improving, will monitor and treat w/ prn - Received 6gm loading in ED, Start Mg at 2g/hr - Admit to L&D for continuous monitoring - Saucedo for continuous I/O monitoring - PRN labetalol and hydralazine per protocol Diet: VTE: ppx lovenox Code: Full Dispo: Admit to L&D inpatient for BP monitoring and Mg. ELOS >48hr PCP: Dr. Donald Johnson FMR H&P: Upper Level - Plan Date/Time: 05/17/20 0462 I, [], have evaluated this patient and agree with findings/plan as outlined by internet marketing intern resident. Pertinent changes/additions are listed here. Addendum - Attending - Attending Attestation Date/Time: 05/17/20 4550 I personally evaluated the patient and discussed the management with Dr. Feng I agree with the History, Examination, Assessment and Plan documented above with any addition or exceptions noted below - 24 yo s/p on 05/04 presented to clinic for 2 week check up and found to have elevated BP and c/o HAMPTON for last 3 days. No prior h/o HTN or pre-eclampsia. Denies any visual changes, abd pain or edema. Afebrile BP 150-180/80-110 Exam repeated by me and agree with resident's findings. CBC and CMP within normal limits. Urine protein and creatinine pending. A/P: Post pre-eclampsia with severe features - admit to L&D for magnesium sulfate. Labetolol for severe range pressures. Monitor urine output.
[2020-05-17] MEDS ORDERED: Magnesium Sulfate 20 gm/500 ml 20 GM/500 ML BAG ONE (17:37)
[2020-05-17] MEDS: Magnesium Sulfate 20 gm/500 ml 20 GM/500 ML BAG IVPB SCH (17:47)
[2020-05-17] MEDS ORDERED: Labetalol HCl 100 MG/20 ML VIAL SLOW IVP PRN (18:27)
[2020-05-17] MEDS ORDERED: hydrALAZINE 20 MG/ML VIAL SLOW IVP PRN (18:27)
[2020-05-17] MEDS ORDERED: Calcium Gluconate 4.6 MEQ in Sodium Chloride 0.9% 100 ML IVPB PRN (18:27)
[2020-05-17] MEDS ORDERED: Ondansetron PF 4 MG/2 ML Vial IVP PRN (18:27)
[2020-05-17 18:40] VITALS: BMI 31.8
[2020-05-17] MEDS ORDERED: FLU VACC QS2020-21(6MOS UP)/PF 60 MCG/0.5 ML SYRINGE IM ONE (18:45)
[2020-05-17] MEDS: Acetaminophen 325 MG TAB PO PRN (20:24)
--- NOTE | 2020-05-18 00:33 | PDOC.BPN ---
- Brief Progress Note Encounter Date: 05/17/20 Encounter Time: 23:00 [facility] Check- Progress Note Pt resting comfortably in bed. Endorses mild HAMPTON 2/10 in intensity, much improved since admission. Denies vision changes, CP, SOB, abdominal pain. Vitals WNL. Adequate urine output: 2000 mL urine output since admission to L&D. Physical exam positive for 2+ reflexes in lower extremities. No clonus. Will continue to monitor. Repeat check in 4 hours.
[2020-05-18] MEDS: Acetaminophen 325 MG TAB PO PRN ×4 (02:25→20:01)
[2020-05-18] MEDS: Magnesium Sulfate 20 gm/500 ml 20 GM/500 ML BAG IVPB SCH ×2 (03:01→09:46)
--- NOTE | 2020-05-18 03:25 | PDOC.BPN ---
- Brief Progress Note Encounter Date: 05/18/20 Encounter Time: 03:20 [facility] Progress Note Pt resting comfortably in bed. Endorses increasing HAMPTON. She also has pain behind her eyes and endorses congestion x2 days. Tylenol did not help. Denies vision changes, CP, SOB, abdominal pain. One severe pressure at 02:20 of 163/102, resolved spontaneously on repeat with proper placement of BP cuff. Other than that, vitals WNL. Adequate urine output. Physical exam positive for 2+ reflexes in lower extremities. No clonus. Will continue to monitor. Repeat check in 4 hours. Will trial mucinex and flonase to see if this helps HAMPTON if 2/2 congestion. Plan discussed with Dr. Doe and Dr. Bravo and they agree.
[2020-05-18 05:58] LABS: AST (SGOT) 20 U/L (5-34); Albumin 3.6 g/dL (3.5-5.0); Anion Gap 15 mmol/L (10-20); BUN (Urea Nitrogen) 8 mg/dL (7.0-18.7); Bilirubin, Total 0.3 mg/dL (0.2-1.2); Calc. Creatinine Clearance 201 mL/min (70-130); Carbon Dioxide 19 mmol/L (22-29); Chloride 105 mmol/L (98-107); Globulin 3.7 g/dL (2.4-3.5); Glucose 86 mg/dL (70-105); Protein, Total 7.3 g/dL (6.0-8.3); Sodium 135 mmol/L (136-145)
--- NOTE | 2020-05-18 06:05 | PDOC.FM ---
- Subjective Subjective: Progress note and Mg check: S: Hugo was sleeping comfortably this morning but endorsed a headache 2/2 photosensitivity and continues to endorse upper respiratory congestion. She denies vision changes, RUQ pain, edema, dyspnea/SOB. O: UOP has been adequate at >200mL/h for the past 4hrs. BPs have remained high, ranging from 133-165/84-99; prns available for administration. Reflexes 3+ b/l with 1 beat of clonus in feet b/l. - Objective Vital Signs & Weight: Weight Weight 89.358 kg Result Diagrams: 05/18/20 05:29 05/18/20 05:29 Phys Exam - Physical Examination Constitutional: NAD (sleeping comfortably, easily arousable) Neck: supple, full ROM Respiratory: clear to auscultation bilateral No respiratory distress Cardiovascular: RRR, no significant murmur Musculoskeletal: no edema, pulses present (3+ with 1 beat myoclonus in feet b/l) Neurological: non-focal, moves all 4 limbs Psychiatric: normal affect, A&O x 3 Dx/Plan - Plan Plan: Post Preeclampsia with severe features - 2 weeks pp s/p 05/04 - Intermittent HAMPTON. Sinus congestion a possible contributing factor Mucinex and Flonase ordered - Mg drip - On L&D for continuous BP and I/O monitoring - PRN labetalol and hydralazine per protocol Diet: Clear Liquid VTE: ppx lovenox Code: Full PCP: Dr. Donald Johnson Dispo: Continue Mg drip and q4h Mg checks. Continue to monitor UOP and BPs and administer prn antihypertensives when needed. Addendum - Attending - Attending Attestation Date/Time: 05/18/20 1314 I personally evaluated the patient and discussed the management with Dr. Mendel Coon I agree with the History, Examination, Assessment and Plan documented above with any addition or exceptions noted below -= Patient with mild HAMPTON ; states that it feels like sinus pressure. Afebrile VSS. U/O>2000 mL/hr A/P: 1) Pre-eclampsia with severe features- diuresing well. Continue magnesum for 24 hours. Will start on nifedipine due to persistent pressures.
[2020-05-18 06:07] LABS: ALT (SGPT) 12 U/L (8-55); Alkaline Phosphatase 81 U/L (40-110)
[2020-05-18 06:15] LABS: Eosinophils 5 % (0-10); Hemoglobin 12.9 g/dL (12.0-16.0); Hypochromia SLIGHT = 6-15 cells (100X) (0-5/hpf); Lymphocytes 57 % (21-51); MDiff Complete? YES; Mean Corpuscular HGB CONC 31.1 g/dL (32.0-36.0); Mean Corpuscular Hemoglobin 25.5 pg (27.0-31.0); Mean Platelet Volume 8.3 fL (7.4-10.4); Monocytes 5 % (0-10); Neutrophil 32 % (42-75); Platelet Count 308 thou/uL (130-400); Platelet Morphology Comment Appears Adequate; RBC Distribution Width 13.1 % (11.5-14.5); Reactive Lymphocytes 1 % (0-10); Red Blood Cell (RBC) Count 5.06 mill/uL (4.20-5.40); White Blood Cell (WBC) Count 5.3 thou/uL (4.8-10.8)
[2020-05-18] MEDS: Fluticasone Propionate Nasal Spray 16 gm Bottle NASAL SCH (09:30)
[2020-05-18] MEDS: guaiFENesin ER 600 MG TAB PO SCH ×2 (09:30→20:00)
[2020-05-18] MEDS: Enoxaparin Sodium 40 MG/0.4 ML SYRINGE SC SCH (09:30)
[2020-05-18] MEDS ORDERED: NIFEdipine XL 30 MG TAB PO SCH (11:00)
--- NOTE | 2020-05-18 11:09 | PDOC.BPN ---
- Brief Progress Note Encounter Date: 05/18/20 Encounter Time: 10:50 Mg check: S: Hugo continues to complain of HAMPTON. She has been given the Mucinex and Flonase and feels her sinus pressure has improved but her HAMPTON has not. She continues to deny vision changes, SOB/dyspnea, CP, RUQ pain, LE edema. O: Had a severe BP of 169/99 but the nurse states at that time she was sitting up crying because she wanted to go home. Repeats since then have been 149/104 and 157/103. UOP has been adequate at >350mL/h. Reflexes 2+ without clonus. P: Continue to monitor BP and UOP. Continue q4h Mg checks. Will start Nifedipine and continue prn Tylenol.
--- NOTE | 2020-05-18 15:40 | PDOC.BPN ---
- Brief Progress Note Encounter Date: 05/18/20 Encounter Time: 15:35 Mg check S: Hugo is feeling well but continues to complain of a mild HAMPTON. She denies vision changes, dyspnea/SOB, CP, RUQ pain, LE edema. O: BPs have continued to be elevated with occasional readings in the severe range but are always followed by non-severe readings. Nifedipine has already been administered and prn antihypertensives are available. UOP has been adequate. Reflexes 2+ b/l without clonus. P: Discontinue Mg since it has been 24hrs since her initial dose. Continue monitoring BPs and administer prn medications as needed.
[2020-05-19] MEDS ORDERED: Ketorolac Tromethamine 30 MG/ML VIAL IVP SCH (02:30)
[2020-05-19] MEDS: Acetaminophen 325 MG TAB PO PRN (05:14)
--- NOTE | 2020-05-19 07:01 | PDOC.FM ---
- Subjective Subjective: Hugo is doing well this morning and states her overnight headache has improved. She denies vision changes, SOB/dyspnea, CP, RUQ pain, LE edema. She has no complaints at this time. - Objective Vital Signs & Weight: Vital Signs (12 hours) Temp Pulse Resp BP Pulse Ox 05/19/20 05:10 98 F 81 16 131/91 H 98 05/18/20 20:15 87 16 130/89 05/18/20 19:04 98.6 F 78 16 99 Weight Weight 89.358 kg Result Diagrams: 05/18/20 05:29 05/18/20 05:29 Phys Exam - Physical Examination Constitutional: NAD Neck: supple, full ROM Respiratory: clear to auscultation bilateral Cardiovascular: RRR, no significant murmur Musculoskeletal: no edema, pulses present Neurological: non-focal, moves all 4 limbs Psychiatric: normal affect, A&O x 3 Dx/Plan - Plan Plan: Post Preeclampsia with severe features - 2 weeks pp s/p 05/04 - Intermittent HAMPTON. Sinus congestion a possible contributing factor Mucinex and Flonase ordered Tylenol prn - Mg drip d/c s/p 24hrs - BP monitoring - PRN labetalol and hydralazine per protocol - Nifedipine started yesterday Diet: Regular VTE: ppx lovenox Code: Full PCP: Dr. Donald Johnson Dispo: Continue to monitor BP and administer BP medications, as needed. Likely discharge today on daily Nifedipine. Addendum - Attending - Attending Attestation Date/Time: 05/19/20 1131 I personally evaluated the patient and discussed the management with Dr. Mendel Coon I agree with the History, Examination, Assessment and Plan documented above with any addition or exceptions noted below - Ptaient without complaints. Hampton mostly resolved. Afebrile VSS. A/P: 1) Pre-eclampsia with severe features- competed magnesium yesterday. On nifedipine ER 30 mg qday and BP much better. D/c home today. Will need follow-up at clinic on Friday for BP check and will send home with rx for BP cuff.
[2020-05-19 08:04] VITALS: BP 135/89; TEMP 99.2
[2020-05-19] MEDS: Enoxaparin Sodium 40 MG/0.4 ML SYRINGE SC SCH (08:53)
[2020-05-19] MEDS: guaiFENesin ER 600 MG TAB PO SCH (08:54)
[2020-05-19] MEDS: Fluticasone Propionate Nasal Spray 16 gm Bottle NASAL SCH (08:55)
[2020-05-19] MEDS ORDERED: NIFEdipine XL 30 MG TAB PO SCH ×2 (09:00)
--- NOTE | 2020-05-20 08:48 | DIS ---
DATE OF ADMISSION: 05/17/2020 DATE OF DISCHARGE: 05/19/2020 RESIDENT: Sandy Slaughter MD ADMITTING ATTENDING: Mansi Mata MD DISCHARGE ATTENDING: Mansi Mata MD CONSULTATIONS: None. PROCEDURE: CT head (05/17), normal. PRIMARY DIAGNOSIS: Preeclampsia in the period. SECONDARY DIAGNOSIS: None. DISCHARGE MEDICATIONS: 1. Nifedipine 30 mg p.o. daily. 2. Ferrous sulfate 325 mg p.o. q.a.m.-WM. 3. Lanolin ointment. 4. vitamin 1 tab p.o. daily. 5. Ibuprofen 800 mg p.o. q.8h. Discontinued medications: None. HOSPITAL COURSE: This is a 24-year-old, G3, P3, status post on May 04, who presented to the ED after being sent over from clinic for headache and elevated blood pressure. She was being seen for her 2-week visit and expressed 3 days of headache and was found to have an elevated blood pressure. In the ED, she had a repeat blood pressure in the severe range and was given a loading dose of magnesium. She did not have any history of elevated blood pressures prior to or during . She consistently denied vision changes, abdominal pain, trouble breathing, chest pain, lower extremity swelling. She had no history of seizures. Her headache was intermittent and mildly responsive to Tylenol. It appeared as though there may have been a sinus congestion component to it. Some Mucinex and Flonase were given, but that did not resolve it either. At one point, she required Toradol to relieve the headache, which is why she was sent home with ibuprofen. During her stay, she was placed on a magnesium drip for 24 hours with q.4 hours magnesium checks and frequent blood pressure monitoring. She continued to have occasional severe-range pressures, so she was started on 30 mg of nifedipine daily. This controlled her blood pressures well, the magnesium was discontinued after 24 hours, and her diet was advanced from clear liquids which she tolerated well. DISPOSITION: Stable. DISCHARGE INSTRUCTIONS: Location: Home. Diet: Regular. Activity: As tolerated. Followup. The patient was instructed to follow up with her PCP on Friday for a blood pressure check. She was also instructed to continue taking nifedipine daily, which would then be managed by her PCP. Job ID: [id number] [facility]
--- NOTE | 2020-05-20 15:20 | EKG ---
Test Reason : Blood Pressure : / mmHG Vent. Rate : 062 BPM Atrial Rate : 062 BPM P-R Int : 152 ms QRS Dur : 078 ms QT Int : 444 ms P-R-T Axes : 019 095 047 degrees QTc Int : 450 ms Normal sinus rhythm Rightward axis Cannot rule out Anterior infarct , age undetermined Abnormal ECG Confirmed by PAM MASCORRO ([id number]), scientific editor FREDDY KUMARI ([id number]) on 05/20/2020 3:19:44 PM Referred By: Confirmed By:PAM Geronimo
== END 2020-05-19 11:25 | disposition home or self-care (01) | DRG 776 ==
LOC: ERS 12:06 → L&D 14:50 → 3SE 05-18 17:19
PROVIDERS: ADMIT Family Medicine; ATTEND Family Medicine
PROC: 0T9B70Z Drainage of Bladder with Drainage Device, Via Natural or Artificial Opening (ICD-10-PCS; principal; 2020-05-17)
DX: O14.15 Severe pre-eclampsia, complicating the puerperium (principal); Z79.899 Other long term (current) drug therapy; Z87.891 Personal history of nicotine dependence
CPT/HCPCS: 36415; 70496; 71045; 80053; 81003; 81015; 82570; 83735; 84156; 84484; 85025; 93005; 99285; J1650; J1885; J3475; J3490; J7050; Q9967

== ENCOUNTER 2021-02-26 08:38 | Emergency (ER) | payer OTHER ==
[2021-02-26 09:05] LABS: #Basophils 0.1 thou/uL (0.0-0.2); #Eosinphils 0.3 thou/uL (0.0-0.7); #Lymphocytes 2.9 thou/uL (1.20-3.40); #Monocytes 0.5 thou/uL (0.11-0.59); #Neutrophils 2.2 thou/uL (1.40-6.50); %Basophils 1.6 % (0.0-1.0); %Eosinophils 4.5 % (0.0-10.0); %Lymphocytes 48.9 % (21.0-51.0); %Monocytes 8.1 % (0.0-10.0); Hemoglobin 11.6 g/dL (12.0-16.0); Mean Corpuscular HGB CONC 32.4 g/dL (32.0-36.0); Mean Corpuscular Hemoglobin 27.3 pg (27.0-31.0); Mean Corpuscular Volume 84.4 fL (78.0-98.0); Mean Platelet Volume 7.1 fL (7.4-10.4); Platelet Count 271 thou/uL (130-400); RBC Distribution Width 11.9 % (11.5-14.5); Red Blood Cell (RBC) Count 4.24 mill/uL (4.20-5.40); White Blood Cell (WBC) Count 5.8 thou/uL (4.8-10.8)
[2021-02-26 09:19] LABS: BHCG - Serum Negative (NEGATIVE); Pregs Control Background? CLEAR/WHITE (CLR/WHITE); Pregs Control Bar Appear? YES (CONTROL BAR)
[2021-02-26 09:35] LABS: ALT (SGPT) 8 U/L (8-55); AST (SGOT) 13 U/L (5-34); Alkaline Phosphatase 47 U/L (40-110); Anion Gap 11 mmol/L (10-20); BUN (Urea Nitrogen) 7 mg/dL (7.0-18.7); Bilirubin, Total 0.7 mg/dL (0.2-1.2); Calc. Creatinine Clearance 0 mL/min (70-130); Calcium 9.1 mg/dL (7.8-10.44); Carbon Dioxide 25 mmol/L (22-29); Chloride 104 mmol/L (98-107); Glucose 91 mg/dL (70-105); Sodium 136 mmol/L (136-145)
[2021-02-26 10:59] LABS: Bilirubin Negative (Negative); Blood, Urine 3+ (Negative); Clarity Clear (Clear); Glucose, Urine (Dipstick) Normal (Negative); Ketone, Urine Negative (Negative); Leukocyte 25 Leu/uL (Negative); Nitrite Negative (Negative); Protein, Urine (Dipstick) Negative (Neg-Trace); RBC/HPF 0-3 HPF (0-3); Squamous Epithelial 0-3 HPF (0-3); Urobilinogen Normal mg/dL (Less than 2); pH, Urine 7.5 (5.0-9.0)
[2021-02-26 11:00] LABS: Bacteria/HPF 1+ HPF (None Seen)
== END 2021-02-26 10:08 | disposition home or self-care (01) ==
LOC: ERS 08:38
DX: N93.9 Abnormal uterine and vaginal bleeding, unspecified (principal); Z87.891 Personal history of nicotine dependence
CPT/HCPCS: 36415; 80053; 81003; 81015; 84703; 85025; 99284

== ENCOUNTER 2023-02-14 20:52 | Emergency (ER) | payer OTHER | END 2023-02-14 21:53 | disposition home or self-care (01) | LOC: ERS 20:52 | DX: B34.9 Viral infection, unspecified (principal); Z20.822 Contact with and (suspected) exposure to COVID-19 | CPT/HCPCS: 87635; 99284 ==

== ENCOUNTER 2023-11-28 09:09 | Emergency (ER) | payer OTHER ==
[2023-11-28] MEDS ORDERED: Ketorolac Tromethamine 30 MG (1 mL) VIAL ONE (10:15)
== END 2023-11-28 10:32 | disposition home or self-care (01) ==
LOC: ERS 09:09
DX: K08.89 Other specified disorders of teeth and supporting structures (principal); Z75.3 Unavailability and inaccessibility of health-care facilities
CPT/HCPCS: 96372; 99282; J1885